=== PATIENT | male | born 1965 | race Caucasian/White ===

== ENCOUNTER 2016-09-10 17:07 | Emergency (ER) | payer BC ==
[2016-09-10 18:06] LABS: BASO % 0.4 % (0.2-1.2); EOS # 0.2 10_X3_uL (0.0-0.5); EOS % 3.1 % (0.8-7.0); GRAN # 3.8 10_X3_uL (1.8-5.4); GRAN % 56.7 % (34.0-67.9); HEMATOCRIT 45.9 % (40-51); HEMOGLOBIN 15.3 g/dL (13.7-17.5); LYMPH % 29.2 % (21.8-53.1); MEAN CORPUSCULAR HEMOGLOBIN 30.4 pg (27.0-33.0); MEAN CORPUSCULAR HGB CONC 33.3 g/dL (32.0-36.0); MEAN CORPUSCULAR VOLUME 91.3 fL (79-92); MEAN PLATELET VOLUME 9.2 fl (7.5-11.5); MONO # 0.7 10_X3_uL (0.3-0.8); MONO % 10.6 % (5.3-12.2); PLATELET COUNT 309 x10_3/uL (163-337); RED BLOOD COUNT 5.03 x10_6/uL (4.6-6.1); RED CELL DISTRIBUTION WIDTH 15.5 % (11.6-14.4); WHITE BLOOD COUNT 6.8 x10_3/uL (4.2-9.1)
[2016-09-10 18:19] LABS: ALBUMIN 4.3 gm/dL (3.4-5.0); ALKALINE PHOSPHATASE 85 U/L (50-136); ALT/SGPT 34 U/L (7.53-40.17); AMYLASE 51 U/L (15.62-74.58); AST/SGOT 18 U/L (6.66-35.34); BILIRUBIN,TOTAL 0.34 mg/dL (0.0-1.0); BLOOD UREA NITROGEN 15 mg/dL (7-18); CALCIUM 9.2 mg/dL (8.7-10.7); CARBON DIOXIDE 24 mmol/L (21-32); CREATININE 1.2 mg/dL (0.6-1.3); GLUCOSE,RANDOM 89 mg/dL (70-99); LIPASE 48 U/L (6.75-60.75); POTASSIUM 4.2 mmol/L (3.5-5.1); SODIUM 142 mmol/L (136-145); TOTAL PROTEIN 7.2 gm/dL (6.4-8.2)
== END 2016-09-10 18:47 | disposition home or self-care (01) ==
LOC: ER 17:07
PROVIDERS: General Practice
DX: N20.0 Calculus of kidney (principal); R10.31 Right lower quadrant pain; R10.11 Right upper quadrant pain; R19.7 Diarrhea, unspecified; Z79.899 Other long term (current) drug therapy; Z88.0 Allergy status to penicillin; Z88.1 Allergy status to other antibiotic agents
CPT/HCPCS: 36415; 80053; 82150; 83690; 85025; 99284-25